=== PATIENT | female | born 1980 | race Caucasian/White ===

== ENCOUNTER 2020-11-03 08:55 | Day surgery (SDC) | payer OTHER, BC ==
[~2020-11-03] VITALS: Ht 170.2 cm; Wt 85.5 kg
[~2020-11-03 08:55] MED LIST: ACETAMINOPHEN650 M1 PO; AMITRIPTYLINE100 MG PO; AMLODIPINE BESYL5 MG PO; BUTALB-CAFF-AC1 EACH PO; CYCLOBENZAPRINE10 MG PO; FLUOXETINE HCL20 M1 PO; HYDROCHLOROTH12.5 MG PO; IBUPROFEN800 MG PO; MELATONIN5 M2 PO; MULTIVITAMINS1 EAC7 PO; PERCOCET 5-3251 EACH PO; PRILOSEC OTC20 MG PO; PROMETHAZINE HC25 M1 PO; ROBAXIN-750750 MG PO
[2020-11-03] MEDS ORDERED: NORCO 10-325 T1 EACH PO (12:30)
--- NOTE | 2020-11-03 15:11 | OR ---
[facility] [address] [place], [place] [address] Signed DATE OF OPERATION: 11/03/2020 SURGEON: Prem Odell MD PREOPERATIVE DIAGNOSIS: Cholecystitis with cholelithiasis. POSTOPERATIVE DIAGNOSIS: Cholecystitis with cholelithiasis. PROCEDURE: Laparoscopic cholecystectomy with intraoperative cholangiogram. ESTIMATED BLOOD LOSS: Minimal. FINDINGS: Bernadette had one large stone in the gallbladder. She had significant cholesterolosis. The intraoperative cholangiogram was unremarkable. INDICATIONS: Bernadette is a 40-year-old female with a body mass index of 29. She has had trouble with epigastric pain radiating to her back. She has had bloating and nausea. She said it comes and goes. Her blood work was fine. Ultrasound showed a 2.2 cm stone in the neck of her gallbladder. There was concern there could be several other smaller stones. The common bile duct was unremarkable. The gallbladder wall was not thickened. She was asked to see me with respect to the above. Her symptoms have continued. In the office, I gave her a booklet on the gallbladder. We looked at that together page by page. She understands the location of function of the gallbladder. We discussed laparoscopic versus open cholecystectomy. We also reviewed the expected intraop and postop course. There is risk of surgery including, but not limited to bleeding, infection, scarring, change in contour of the skin, damage to bowel, damage to main bile duct and incisional hernias. She had expressed understanding and wished to proceed. PROCEDURE NOTE: I met with Bernadette and her in our preop area. After answering the questions, we took Bernadette into the operating room. She was placed in the supine position under general endotracheal tube anesthesia. She was given preoperative antibiotics along with subcutaneous heparin. SCDs were utilized. She was then prepped and draped in the usual sterile fashion. We used a vertical supraumbilical incision because she has a previous Electronically Signed By: PREM ODELL MD 11/03/20 1511 PATIENT NAME: BERNADETTE WHITT OPERATIVE REPORT DATE OF : 76 REPORT #: [id number] PHYSICIAN: PREM ODELL MD PCP: GABE STAPLETON PA-C REPORT IS CONFIDENTIAL AND NOT TO BE RELEASED WITHOUT AUTHORIZATION [facility] [address], [place] [address] Signed transverse infraumbilical incision. We wanted to preserve the blood flow to that umbilical skin. The trocars were placed in usual positions under direct visualization of camera without difficulty. The gallbladder was grasped and elevated in the right upper quadrant. We took pictures throughout for photodocumentation. The triangle of [place]ot was dissected free and 2 clips were placed across the cystic artery and it was divided. The intraoperative cholangiocatheter was inserted into the cystic duct. The intraoperative cholangiogram was found to be unremarkable. We secured the cystic duct stump with a PDS Endoloop and 2 clips were placed across the cystic duct stump to veronica its location. After this, the gallbladder was removed from the gallbladder fossa with the help of cautery and placed into an EndoCatch bag. We then utilized our laparoscopic suturing device to pass 0 Vicryl suture on either side of the fascia of the subxiphoid trocar site. This was tied down to close this fascia primarily. After this, all the gas was allowed to escape and all the trocars were removed. The gallbladder was opened on the back table by our circulating nurse for photodocumentation. We closed the fascia of the supraumbilical trocar site with multiple interrupted [id number] and simple 0-Vicryl sutures. Local anesthetic was injected into all trocar sites. Each trocar site was irrigated and suctioned out until clear. The skin and dermis of each trocar site were closed with interrupted 3-0 subcuticular Monocryl sutures. She specifically asked for no dressing and in particular no tape because of her allergies. Consequently, the incisions were left open to air. After this, Bernadette was weaned from anesthesia, extubated in the OR, and taken into recovery room in stable condition. Prem Odell MD ALB/MODL /[id number] cc: MD Gabe Cuellar PA Copies: PREM ODELL MD ~ Electronically Signed By: PREM ODELL MD 11/03/20 1511 PATIENT NAME: BERNADETTE WHITT OPERATIVE REPORT DATE OF : 76 REPORT #: [id number] PHYSICIAN: PREM ODELL MD PCP: GABE STAPLETON PA-C REPORT IS CONFIDENTIAL AND NOT TO BE RELEASED WITHOUT AUTHORIZATION
--- NOTE | 2020-11-08 13:57 | PATH ---
[facility] [address] [facility] [place] [address] Signed SPECIMEN(S): A GALLBLADDER WITH STONE SPECIMEN SOURCE: A. GALLBLADDER WITH STONE CLINICAL HISTORY: Laparoscopic cholecystectomy. Chronic cholecystitis. FINAL PATHOLOGIC DIAGNOSIS: Gallbladder, cholecystectomy: - Chronic cholecystitis with cholesterolosis. - Cholelithiasis. NAL:cml:C2NR MICROSCOPIC EXAMINATION: Histologic sections of all submitted blocks are examined by light microscopy. These findings, together with the gross examination, support the pathologic diagnosis. GROSS DESCRIPTION: The specimen, labeled "KW," and designated on the requisition "gallbladder," is received in formalin and consists of Specimen: Previously opened gallbladder. Dimensions: 6.4 x 4.2 x 1.5 cm. Serosa: [place]britt and smooth. Cystic Duct: Unobstructed. Calculi: One yellow-green calculus (1.6 x 1.5 x 1.5 cm). Mucosa: Red-brown and velvety. Wall thickness: 0.6 cm. Lymph node: No pericystic lymph nodes are grossly identified. Additional: None. Tandem Mill Operator sections are submitted in cassette (A1). AC (under the direct supervision of a pathologist) The Gross Description was prepared using a voice recognition system. The report was reviewed for accuracy; however, sound-alike word errors, addition and/or deletions may occur. If there is any question about this report, please contact Client Services. PERFORMING LABORATORY: The technical component was performed by [facility], [address] [place] [id number] (Chief Controller Center: Shaneka Nichols MD; CLIA# [id number]). PATIENT NAME: BERNADETTE WHITT PATHOLOGY DATE OF : 76 REPORT #: [id number] PHYSICIAN: DOMINGA DANIEL PCP: GABE STAPLETON PA-C REPORT IS CONFIDENTIAL AND NOT TO BE RELEASED WITHOUT AUTHORIZATION [facility] [address] [place], [place] [address] Signed Professional interpretation was performed by [facility], [address] [address] (CLIA# [id number]). Diagnostician: Shalini Vázquez MD Pathologist Electronically Signed 11/08/2020 Copies: ~ PATIENT NAME: BERNADETTE WHITT PATHOLOGY DATE OF : 76 REPORT #: [id number] PHYSICIAN: DOMINGA DANIEL PCP: GABE STAPLETON PA-C REPORT IS CONFIDENTIAL AND NOT TO BE RELEASED WITHOUT AUTHORIZATION
== END 2020-11-03 14:05 | disposition home or self-care (01) ==
LOC: DS 08:55
PROVIDERS: ATTEND Colon & Rectal Surgery
DX: K80.10 Calculus of gallbladder with chronic cholecystitis without obstruction (principal); I10 Essential (primary) hypertension; F32.9 Major depressive disorder, single episode, unspecified; K21.9 Gastro-esophageal reflux disease without esophagitis; Z87.891 Personal history of nicotine dependence; Z11.59 Encounter for screening for other viral diseases
CPT/HCPCS: 00790; 74300; J0690; J1100; J1644; J1885; J2250; J2405; J2704; J2765; J3010; J7121; Q9967